=== PATIENT | female | born 1950 | race African-American/Black ===

== ENCOUNTER 2018-09-18 21:17 | Emergency (ER) | payer OTHER, MEDICARE ==
[~2018-09-18] VITALS: Ht 160 cm; Wt 85.7 kg
[~2018-09-18 21:17] MED LIST: ADVAIR HFA115 MCG/21; ASPIR 8181 MG PO; CARVEDILOL12.5 MG PO; CELEXA20 MG PO; CIPROFLOXACIN500 M1 PO; COZAAR 50 MG TA50 M2 PO; FLAGYL500 MG PO; FLEXERIL PO; HYDROCHLOROTHIA25 M2 PO; NAPROSYN500 MG PO; NORTRIPTYLINE H25 M3 PO; OMEPRAZOLE 20 M20 M1 PO; ONDANSETRON HCL4 M2 PO; PERCOCET PO; PREDNISONE50 MG PO; SPIRONOLACTONE25 M1 PO; VENTOLIN HFA 1818 GM; VENTOLIN HFA 1818 GM INH; ZANTAC 150MG T150 MG PO; ZPAK PO; ZYRTEC10 M5 PO
[2018-09-18] MEDS ORDERED: EXCEDRIN EXTRA STR PO (21:42)
[2018-09-18] MEDS ORDERED: DIPHENHIST25 M2 PO (21:43)
[2018-09-18] MEDS ORDERED: TRAMADOL 50 MG50 MG PO (21:44)
[2018-09-18] MEDS ORDERED: VIACTIV 650 MG1 EACH PO (21:44)
[2018-09-18] MEDS ORDERED: ANTIVERT25 MG PO (21:45)
[2018-09-19 01:07] VITALS: BP 150/82
== END 2018-09-19 01:08 | disposition home or self-care (01) ==
LOC: ER 21:17
DX: G43.009 Migraine without aura, not intractable, without status migrainosus (principal); I10 Essential (primary) hypertension; Z88.5 Allergy status to narcotic agent; Z88.8 Allergy status to other drugs, medicaments and biological substances; Z79.899 Other long term (current) drug therapy

== ENCOUNTER 2019-11-09 14:45 | Emergency (ER) | payer OTHER, MEDICARE ==
[~2019-11-09] VITALS: Ht 160 cm; Wt 81.7 kg
[~2019-11-09 14:45] MED LIST changes: +ANTIVERT25 MG PO; +DIPHENHIST25 M2 PO; +EXCEDRIN EXTRA STR PO; +TRAMADOL 50 MG50 MG PO; +VIACTIV 650 MG1 EACH PO
[2019-11-09 15:28] LABS: ABSOLUTE NEUTROPHILS 3.8 thou/uL (1.4-8.2); BASOPHILS 0.9 % (0.0-2.0); EOSINOPHILS 2.7 % (0.0-3.0); HEMATOCRIT 35.5 % (37.0-47.0); HEMOGLOBIN 11.4 gm/dL (12.0-15.0); MCH 23.2 pg (26.0-34.0); MCHC 32.1 g/dL (28.0-37.0); MCV 72.4 fL (80.0-100.0); MONOCYTES 9.9 % (1.0-8.0); PLATELET COUNT 357 thou/uL (150-400); POLYS 50.5 % (36.0-66.0); RDW 15.9 % (10.5-14.5); WBC 7.5 thou/uL (4.0-11.0)
[2019-11-09 15:47] LABS: ANION GAP 5 mmol/L (7-16); BUN 23 mg/dL (7-18); CALCIUM 8.5 mg/dL (8.5-10.1); CHLORIDE 100 mmol/L (98-107); CO2 26 mmol/L (21-32); CREATININE 1.1 mg/dL (0.6-1.0); GLUCOSE 64 mg/dL (74-106); SODIUM 131 mmol/L (136-145)
[2019-11-09 15:56] LABS: POTASSIUM 5.8 mmol/L (3.5-5.1)
[2019-11-09 15:57] LABS: ALBUMIN 3.8 g/dL (3.4-5.0); SGOT 47 U/L (15-37); SGPT 24 U/L (30-65); TOTAL BILIRUBIN 0.5 mg/dL (<0.1-1.0); TOTAL PROTEIN 8.1 g/dL (6.4-8.2); TROPONIN-I <0.06 ng/mL (<0.06)
[2019-11-09] MEDS ORDERED: VENTOLIN HFA 1818 GM INH (17:18)
[2019-11-09 17:35] VITALS: BP 121/53
--- NOTE | 2019-11-10 08:07 | EKG ---
[facility] [place] [address] ELECTROCARDIOGRAM REPORT Name: TANNER JIMENEZ Room #: DEP [facility]#: [id number] Admission: 11/09/19 Attend Phys: Discharge: 11/09/19 Date of : 46 Report #: [id number] THIS REPORT FOR: cc: Nila Richardson MD, Cynthia MD Lundgren,Wander Waggoner MD [facility] ~ THIS REPORT FOR: //name// [facility] ED Test Date: 2019-11-09 Test Time: 15:04:48 Pat Name: TANNER JIMENEZ Department: Room: Gender: F 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 : 1950 Requested By: Alexandrea Lama Order Number: [id number] MD: Wander Cortez Measurements Intervals [place] Rate: 86 P: 42 VA: 179 QRS: 8 QRSD: 113 T: -7 QT: 403 QTc: 482 Interpretive Statements Sinus rhythm Poor R wave progression Baseline wander in lead(s) II,III,aVR,aVL,aVF,V5 Compared to ECG 05/09/1999 12:24:28 Poor R wave progression is now present Electronically Signed On 11-10-2019 8:05:09 CDT by Wander Cortez [email or web address] <ELECTRONICALLY SIGNED> By: Wander Cortez MD, [facility] 11/10/19 0805 1504 1504 Wander Cortez MD, [facility] /EPI
== END 2019-11-09 17:35 | disposition home or self-care (01) ==
LOC: ER 14:45
PROVIDERS: Physician Assistant
DX: J98.01 Acute bronchospasm (principal); I10 Essential (primary) hypertension; Z77.120 Contact with and (suspected) exposure to mold (toxic); Z79.899 Other long term (current) drug therapy; Z88.8 Allergy status to other drugs, medicaments and biological substances; Z88.6 Allergy status to analgesic agent; Z90.710 Acquired absence of both cervix and uterus

== ENCOUNTER 2021-03-06 10:35 | Inpatient (IN) | payer OTHER, MEDICARE ==
[~2021-03-06] VITALS: Ht 160 cm; Wt 83.2 kg
[2021-03-06 10:42] VITALS: BP 122/68
[2021-03-06] MEDS ORDERED: SPIRIVA RESPIMAT4 G1 INH (10:56)
[2021-03-06] MEDS ORDERED: LOSARTAN POTAS100 MG PO (10:56)
[2021-03-06] MEDS ORDERED: SINGULAIR 10 MG10 M1 PO (10:57)
[2021-03-06] MEDS ORDERED: FLUTICASONE-SA1 EAC1 INH (10:57)
[2021-03-06 12:31] LABS: ABSOLUTE NEUTROPHILS 3.6 thou/uL (1.4-8.2); BASOPHILS 0.9 % (0.0-2.0); EOSINOPHILS 0.6 % (0.0-3.0); HEMATOCRIT 32.7 % (37.0-47.0); HEMOGLOBIN 10.3 gm/dL (12.0-15.0); LYMPHOCYTES 27.4 % (24.0-44.0); MCH 22.9 pg (26.0-34.0); MCHC 31.4 g/dL (28.0-37.0); MCV 72.8 fL (80.0-100.0); MONOCYTES 8.6 % (1.0-8.0); PLATELET COUNT 327 thou/uL (150-400); POLYS 62.5 % (36.0-66.0); RBC 4.49 mil/uL (4.20-5.00); RDW 14.6 % (10.5-14.5); WBC 5.7 thou/uL (4.0-11.0)
[2021-03-06 12:48] LABS: APTT 27.5 Seconds (24.5-32.8); PROTIME 10.9 Seconds (10.5-12.1)
[2021-03-06 12:50] LABS: CALCIUM 9.5 mg/dL (8.5-10.1); CREATININE 1.6 mg/dL (0.6-1.0); POTASSIUM 5.3 mmol/L (3.5-5.1)
--- NOTE | 2021-03-06 13:02 | EKG ---
[address] [address] ELECTROCARDIOGRAM REPORT Name: TANNER JIMENEZ Room #: REG [facility]#: [id number] Admission: 03/06/21 Attend Phys: Discharge: Date of : 46 Report #: [id number] [facility] ED Test Date: 2021-03-06 Test Time: 11:25:01 Pat Name: TANNER JIMENEZ Department: Room: Gender: F Bandage Maker: JAMISON : 1950 Requested By: Montana Pressley Order Number: [id number] MD: Pawel Estes Measurements Intervals [place] Rate: 75 P: 41 CO: 175 QRS: 0 QRSD: 111 T: -9 QT: 417 QTc: 466 Interpretive Statements Sinus rhythm Anterior infarct, old Borderline T abnormalities, inferior leads Baseline wander in lead(s) I,II,aVR,aVF Compared to ECG 11/09/2019 15:04:48 Myocardial infarct finding now present T-wave abnormality now present Poor R-wave progression no longer present Electronically Signed On 03-06-2021 13:02:06 CDT by Pawel Estes [email or web address] <ELECTRONICALLY SIGNED> By: Pawel Estes MD, FAC 03/06/21 1302 1125 1125 Pawel Estes MD, [facility] /EPI
[2021-03-06 13:03] LABS: ALBUMIN 3.7 g/dL (3.4-5.0); TOTAL BILIRUBIN 0.4 mg/dL (0.2-1.0); TOTAL PROTEIN 7.1 g/dL (6.4-8.2)
[2021-03-06 13:39] LABS: ANISOCYTOSIS 1+; PLATELET ESTIMATE NORMAL
--- NOTE | 2021-03-06 19:02 | NUR ---
REPORT GIVEN TO MARIMAR ALEJANDRO AT THIS TIME
--- NOTE | 2021-03-07 08:11 | EKG ---
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
[2021-03-07 09:33] VITALS: BP 116/60
--- NOTE | 2021-03-07 10:52 | HC ---
[facility] [place] [address] CONSULTATION Name: TANNER JIMENEZ Room #: 170-11 ADM IN M.R.#: [id number] Admission: 03/06/21 Attend Phys: Isaac Daley MD Discharge: Date of : 46 Report #: [id number] THIS REPORT FOR: cc: Sydney Pastor MD, Genelle J. MD Khosla, Parveen K. MD ~ DATE OF SERVICE: 03/06/2021 HISTORY OF PRESENT ILLNESS: This is a 71-year-old female patient on whom I got a call earlier today from emergency room physician, Dr. Pressley. He has indicated that the patient had complained of dizziness, nausea, vomiting, headache of 3 days duration. This morning, her symptoms progressed and she could not stand up. It looks like she was ataxic that time. That is the history I was provided on the phone. So I had talked to them and I have suggested that we do a CT angiogram of the head and neck, If BUN, creatinine and GFR is normal and as my routine is to go ahead and give her 500 mL of fluid that time. Looking at the record, it looks like the patient's GFR was only 38 and she still had the CT angiogram of the head and neck. I talked to the nurses and they said she did not get the fluid because there was no IV line available. Then, I got called saying that CT angiogram showed a question of dissection and they are recommending MRI of the brain with and without contrast. I looked at the films and noticed that GFR was only 38 and the patient had no IV, so I asked them to do the MRI without contrast only. I looked at that ____ and that MRA does not show any dissection and MRI is unremarkable. When I take the history from the patient, she confirmed the history what she gave to Emergency Room physician, but also gave a history that she has a history of migraine. She says that sometimes the symptoms are similar and sometime they are different. She says her last migraine headache was 3 months ago. This is more severe episode than she usually gets. I carried out rest of the review of systems also. She gives a history that she is on multiple medications. She says she is on citalopram for anxiety. She says she has hypertension and takes the medication and she did not know the name. She had a rotator cuff problem in the past. She had a hysterectomy in the past. This was a relevant 14-point review of system. PAST MEDICAL HISTORY: According to her is positive for migraine, but this is the most severe episode she has, according to her. FAMILY HISTORY: Unremarkable. SOCIAL HISTORY: She says she drinks 1 alcoholic drink every 2-3 days. PHYSICAL EXAMINATION: NEUROLOGIC: She is alert. She is responsive. She is able to follow simple and complex commands. Her speech looks intact. Her memory looks intact. [address] [address] CONSULTATION Name: TANNER JIMENEZ Room #: 170-11 [facility] IN .R.#: [id number] Admission: 03/06/21 Attend Phys: Isaac Daley MD Discharge: Date of : 46 Report #: [id number] nerve examination II-XII looks mostly unremarkable. There is no meningeal sign. She moves all 4 extremities. Her strength looks mostly symmetrical. Her position sense is intact. Reflexes are somewhat diminished. I could not look at the patient's fundus. She does not appear to have any cerebellar sign. CARDIAC: Unremarkable. LUNGS: No respiratory difficulty was noticed. VITAL SIGNS: Blood pressure is 101/64, respirations 18, pulse is 67. LABORATORY DATA: Her white count is 5.7. PT is 10.9. IMPRESSION AND PLAN: This patient complains of symptoms of headache, dizziness, nausea, vomiting for 3 days and this morning, she was not able to stand straight and there was a concern of basilar artery abnormality. That is why I had recommended a CT angiogram of the head and neck if the patient's BUN and creatinine and GFR is normal and if it is not, then recommended MRI and MRA. It looks like CT angiogram of the head and neck was done and the patient's GFR was only 38. Because of that, she needs to fluid, but she does not have any IV line. Therefore, I called Dr. Daley, who is the admitting physician and I discussed the situation with him and he said he is going to arrange some IV lines somehow and give the patient fluids and keep her overnight and hydrate and check the BUN and creatinine again tomorrow. She did not get an IV contrast for the MRI because I had changed that MRI to a noncontrast MRI. In the meantime, I asked the patient to drink a lot of fluid and asked the nurses to give a pitcher of water to her. As far as neurological problem is concerned, I do not identify any neurological etiology on the imaging study on this patient. The studies appeared to be unremarkable. She may have migraine, she may have some ENT pathology or she may have anxiety. Furthermore, it looks the history I got from the patient, was that she has a history of migraine in the past and I think combination of these things are causing her symptoms. She has multiple other symptoms, which are nonspecific, but I do not think she has any stroke or any carotid artery dissection or vertebral artery dissection, which needs attention. Since she is staying here I will get the physical therapy evaluation because she mentioned that she was not able to stand this morning. Part of it may be because of hypotension because her blood pressure was only 96/61 at one time and she may be becoming hypotensive at home. All of it was discussed with the patient in detail and I also talked to other physicians as summarized above. Thank you very much for allowing me to share in the management of this patient. If you have any question, please feel free to contact me. <ELECTRONICALLY SIGNED> By: Francisco Bassett MD 03/07/21 1052 1817 0114 Francisco Bassett MD /nt
[2021-03-07 12:10] LABS: ABSOLUTE NEUTROPHILS 3.2 thou/uL (1.4-8.2); BASOPHILS 0.5 % (0.0-2.0); EOSINOPHILS 1.7 % (0.0-3.0); HEMOGLOBIN 9.8 gm/dL (12.0-15.0); MCH 23.2 pg (26.0-34.0); MCHC 31.7 g/dL (28.0-37.0); MCV 73.4 fL (80.0-100.0); MONOCYTES 8.1 % (1.0-8.0); PLATELET COUNT 261 thou/uL (150-400); POLYS 57.7 % (36.0-66.0); RBC 4.23 mil/uL (4.20-5.00); RDW 14.6 % (10.5-14.5); WBC 5.5 thou/uL (4.0-11.0)
[2021-03-07 12:20] LABS: ANION GAP 10 mmol/L (7-16); BUN 18 mg/dL (7-18); CALCIUM 8.7 mg/dL (8.5-10.1); CHLORIDE 91 mmol/L (98-107); CO2 23 mmol/L (21-32); CREATININE 1.5 mg/dL (0.6-1.0); GLUCOSE 109 mg/dL (74-106); POTASSIUM 4.6 mmol/L (3.5-5.1)
[2021-03-07 12:22] LABS: SODIUM 124 mmol/L (136-145)
[2021-03-07 12:26] LABS: CHOLESTEROL 143 mg/dL (<200); HDL CHOLESTEROL 55 mg/dL (>40); LDL CHOLESTEROL 78 mg/dL (<100); TC:HDL 2.6 Ratio (Not establshd); TRIGLYCERIDE 51 mg/dL (<150); VLDL 10 mg/dL (<40)
--- NOTE | 2021-03-07 12:35 | 2DMMODE ---
[facility] [address] [place] [address] 2 D/M-MODE ECHOCARDIOGRAM Name: TANNER JIMENEZ Room #: 170-11 ADM IN M.R.#: [id number] Admission: 03/06/21 Attend Phys: Isaac Daley MD Discharge: Date of : 46 Report #: [id number] THIS REPORT FOR: cc: Sydney Pastor MD, Genelle J. MD Santiago, Patrick MD [facility] ~ APPROVED REPORT Study performed: 03/07/2021 11:02:45 EXAM: Comprehensive 2D, Doppler, and color-flow Echocardiogram Patient Location: ER Room #: 11 Status: routine BSA: 1.84 HR: 75 bpm BP: 116/60 mmHg Rhythm: NSR Other Information Study Quality: Good Indications Migraine, Dizziness Echo Enhancing Agent Indication: Rule out Shunt Agent(s) / Amount(s) Used: Agitated Saline 7 cc 2D Dimensions IVC: 18.00 mm Volumes Left Atrial Volume (Systole) LA ESV Index: 16.00 mL/m2 Tricuspid Valve PA Pressure: 29.00 mmHg Left Ventricle The left ventricle is normal size. There is normal LV segmental wall motion. There is normal left ventricular wall thickness. Left ventricular systolic function is normal. The left ventricular ejection fraction is within the normal range. LVEF is 60-65%. Grade I [facility] [address] [place] [address] 2 D/M-MODE ECHOCARDIOGRAM Name: TANNER JIMENEZ Room #: 170-11 ADM IN M.R.#: [id number] Admission: 03/06/21 Attend Phys: Isaac Daley MD Discharge: Date of : 46 Report #: [id number] - abnormal relaxation pattern. Right Ventricle The right ventricle is normal size. The right ventricular systolic function is normal. Atria The left atrium size is normal. Interatrial septum is intact without evidence of ASD or PFO. The right atrium size is normal. Aortic Valve The aortic valve is normal in structure. No aortic regurgitation is present. There is no aortic valvular stenosis. Mitral Valve The mitral valve is normal in structure. Trace to mild mitral regurgitation. No evidence of mitral valve stenosis. Tricuspid Valve The tricuspid valve is normal in structure. There is trace tricuspid regurgitation. Estimated PAP 29 mmHg. There is no pulmonary hypertension. Pulmonic Valve The pulmonary valve is normal in structure. There is no pulmonic valvular regurgitation. Great Vessels The aortic root is normal in size. IVC is normal in size and collapses >50% with inspiration. Pericardium There is no pericardial effusion. <Conclusion> Normal left ventricle size/wall thickness Ejection fraction 60% Grade 1 diastolic dysfunction Normal right ventricular size/function Normal atrial size Color-flow Doppler study was performed of the aortic/mitral/tricuspid/pulmonary valve Normal aortic valve structure and function Trace mitral valve insufficiency Trace tricuspid valve insufficiency Pulmonary systolic pressure estimated 29 mmHg [facility] [address] [place] [address] 2 D/M-MODE ECHOCARDIOGRAM Name: TANNER JIMENEZ Room #: 170-11 ADM IN M.R.#: [id number] Admission: 03/06/21 Attend Phys: Isaac Daley MD Discharge: Date of : 46 Report #: [id number] No pericardial effusion Normal aortic root size. <ELECTRONICALLY SIGNED> By: Pawel Estes MD, FACC 03/07/21 1235 1235 123 Pawel Estes MD, FACC /INF
[2021-03-07 12:41] LABS: ANISOCYTOSIS 1+; PLATELET ESTIMATE NORMAL
[2021-03-07 18:32] VITALS: BP 114/60
--- NOTE | 2021-03-07 20:20 | NUR ---
Faxed report to [facility]
[2021-03-07 20:38] VITALS: BP 115/41
[2021-03-07 22:00] VITALS: BP 112/61
[2021-03-08] VITALS: BP 126/65
--- NOTE | 2021-03-08 02:51 | NUR ---
PT ADMITTED TO THE UNIT WITH C/O DIZZINESS,HEADACHE,LOSS OF BALANCE AND NAUSEA AND VOMITING.PT IS A/O X4.PT IS UP TO THE BATHROOM AND BSC WITH X1 ASSIST.PT EDUCATED TO CALL WHEN GETTING UP AND WHEN NEEDED.PT DENIED ANY PAIN.PT IS FROM HOME AND LIVES ALONE.IV ACCESS TO RT BREAST WITH NS AT 75CC/HR.PT IS ON ROOM AIR.ADMISSION EDUCATION AND ASSESSMENT COMPLETED.WILL CONTINUE TO MONITOR PER POC
[2021-03-08 05:01] VITALS: BP 111/63
[2021-03-08 05:20] LABS: HEMATOCRIT 30.7 % (37.0-47.0); HEMOGLOBIN 9.9 gm/dL (12.0-15.0); MCH 23.7 pg (26.0-34.0); MCHC 32.1 g/dL (28.0-37.0); MCV 73.9 fL (80.0-100.0); RBC 4.15 mil/uL (4.20-5.00); RDW 14.8 % (10.5-14.5); WBC 5.8 thou/uL (4.0-11.0)
[2021-03-08 05:41] LABS: CALCIUM 8.2 mg/dL (8.5-10.1); CREATININE 1.5 mg/dL (0.6-1.0); POTASSIUM 4.8 mmol/L (3.5-5.1)
[2021-03-08 08:34] VITALS: BP 118/51
[2021-03-08 13:25] VITALS: BP 103/54
[2021-03-08 15:06] VITALS: BP 103/54
--- NOTE | 2021-03-08 16:37 | NUR ---
Assumed pt care at 7am.Pt in and out of bed for activities. Assessment completed.vss.Sr per dry goods inspector.Pt c/o headache Fiorecet given with partial relief.Dr Daley here,dc order noted. Dc summary compile and reviewed with pt.Homer suarez dc'd.At 1640,pt home per wc with family and accompanied by game advisor.
== END 2021-03-08 17:10 | disposition home or self-care (01) | DRG 103 ==
LOC: ER 10:35 → 4W 16:45 → EROBS 16:45 → 4W 03-07 20:51
PROVIDERS: Emergency Medicine; Psychiatry & Neurology Neuromuscular Medicine; ADMIT Hospitalist; ATTEND Hospitalist
DX: G43.909 Migraine, unspecified, not intractable, without status migrainosus (principal); N17.9 Acute kidney failure, unspecified; E87.1 Hypo-osmolality and hyponatremia; I10 Essential (primary) hypertension; I65.02 Occlusion and stenosis of left vertebral artery; Z20.822 Contact with and (suspected) exposure to COVID-19; Z90.710 Acquired absence of both cervix and uterus; Z88.6 Allergy status to analgesic agent; Z88.8 Allergy status to other drugs, medicaments and biological substances; Z79.899 Other long term (current) drug therapy
CPT/HCPCS: 10045

== ENCOUNTER → 2021-03-11 | Outpatient (CLI) | payer OTHER, MEDICARE ==
[~2021-03-11] MED LIST changes: +FLUTICASONE-SA1 EAC1 INH; +LOSARTAN POTAS100 MG PO; +SINGULAIR 10 MG10 M1 PO; +SPIRIVA RESPIMAT4 G1 INH
== END ==
LOC: SJCVC 13:40
PROVIDERS: ATTEND Internal Medicine
DX: R94.31 Abnormal electrocardiogram [ECG] [EKG] (principal); J43.9 Emphysema, unspecified; K21.9 Gastro-esophageal reflux disease without esophagitis; I10 Essential (primary) hypertension; E78.00 Pure hypercholesterolemia, unspecified; Z13.220 Encounter for screening for lipoid disorders; F51.04 Psychophysiologic insomnia; Z82.49 Family history of ischemic heart disease and other diseases of the circulatory system; Z72.89 Other problems related to lifestyle; Z88.8 Allergy status to other drugs, medicaments and biological substances; Z79.899 Other long term (current) drug therapy; Z87.891 Personal history of nicotine dependence

== ENCOUNTER → 2021-03-29 | Outpatient (CLI) | payer OTHER, MEDICARE ==
[~2021-03-29] MED LIST changes: +BENADRYL ALLERG25 MG PO; -EXCEDRIN EXTRA STR PO; +PROAIR HFA8.5 GM INH; +[UNRECOGNIZED DRUG - OTHER] PO
== END ==
LOC: LAB 15:39
PROVIDERS: ATTEND Student in an Organized Health Care Education/Training Program
DX: Z01.812 Encounter for preprocedural laboratory examination (principal); Z20.822 Contact with and (suspected) exposure to COVID-19

== ENCOUNTER → 2021-04-02 | Outpatient (CLI) | payer OTHER, MEDICARE ==
[~2021-04-02] VITALS: Ht 160 cm; Wt 82.1 kg
--- NOTE | 2021-04-05 10:27 | PATH ---
[facility] [address] [address] PATHOLOGY RPT PROCEDURE Name: KIMI DAVIS Room #: REG NAT[facility].#: [id number] Admission: 04/02/21 Date of : 46 Discharge: Report #: [id number] Path Case #: [id number] [facility] Accession Number: [id number] . 01 Material submitted: . PART A: gastrointestinal site - GASTRIC BX PART B: duodenum - DUODENAL BX PART C: colon - RANDOM COLON BX PART D: colon - ASCENDING COLON POLYP. Modifiers: ascending PART E: colon - DESCENDING COLON POLYP. Modifiers: descending . 01 Clinical history: . R/O H. PYLORI R/O CELIAC MICROSCOPIC COLITIS DIARRHEA, DYSPEPSIA, ABDOMINAL PAIN, NAUSEA AND VOMITTING HIATAL HERNIA, COLON POLYPS, DIVERTICULOSIS . 02 Diagnosis: A. Gastric mucosa, gastric, biopsy: - Mild inactive chronic gastritis. - H. pylori immunohistochemical stain is negative. . B. Duodenal mucosa, duodenal, biopsy: - Intact normal villous architecture. - No increase in intraepithelial lymphocytes. . C. Colonic mucosa, random colon, biopsy: - Edematous colonic mucosa with no significant pathologic changes. - Negative for microscopic colitis. . D. Colonic mucosa, ascending colon polyp, biopsy: - Hyperplastic changes. - Negative for dysplasia. . E. Colonic mucosa, descending colon polyp, biopsy: - Tubular adenoma. . (SCA:luciano; 04/04/2021) MBR 04/04/2021 1248 Local . 02 Electronically signed: . Andres Sood DO, Pathologist NPI- [id number] . 01 Gross description: . A. The specimen is received in formalin, labeled "Kimi Davis, gastric [address] [address] PATHOLOGY RPT PROCEDURE Name: KIMI DAVIS Room #: REG [facility].#: [id number] Admission: 04/02/21 Date of : 46 Discharge: Report #: [id number] Path Case #: [id number] biopsy". Received are four segments of pale darnell tissue ranging in size from 0.2-0.5 cm in maximum dimensions. The specimen is submitted entirely in cassette A1. . B. The specimen is received in formalin, labeled "Kimi Davis, duodenal biopsy". Received are two segments of pale darnell tissue measuring 0.3 and 0.4 cm in maximum dimensions. The specimen is submitted entirely in cassette B1. . C. The specimen is received in formalin, labeled "Kimi Davis, random colon biopsy". Received are four segments of pale darnell tissue ranging in size from 0.3-0.4 cm in maximum dimensions. The specimen is submitted entirely in cassette C1. . D. The specimen is received in formalin, labeled "Kimi Davis, ascending colon polyp". Received are two segments of pale darnell tissue measuring 0.2 cm each in maximum dimensions. The specimen is submitted entirely in cassette D1. . E. The specimen is received in formalin, labeled "Kimi Davis, descending colon polyp". Received is a segment of light darnell tissue measuring 0.5 cm in maximum dimensions. The specimen is submitted entirely in cassette E1. ([facility]; 04/03/2021) QAC/QAC 04/03/2021 0957 Local . 02 Pathologist provided ICD-10: K29.50, D12.4, R19.7, R10.13, R10.9, R11.2 . 02 CPT . 733760, 088980, 489339, 120214, 024115, [id number] Specimen Comment: A courtesy copy of this report has been sent to [phone] Specimen Comment: [id number] Specimen Comment: Report sent to / DR OCY Specimen Comment: A duplicate report has been generated due to demographic updates. Performed at: 01 [facility] [address] [id number] MD Roman Rodriguez MD Phone: [phone] Performed at: [address] [place] [id number] [address] [id number] MD Jer Dacosta MD Phone: [phone]
== END | disposition home or self-care (01) ==
LOC: GI 06:45
PROVIDERS: ATTEND Internal Medicine
DX: Z12.11 Encounter for screening for malignant neoplasm of colon (principal); D12.4 Benign neoplasm of descending colon; K57.30 Diverticulosis of large intestine without perforation or abscess without bleeding; D50.0 Iron deficiency anemia secondary to blood loss (chronic); K52.9 Noninfective gastroenteritis and colitis, unspecified; K29.50 Unspecified chronic gastritis without bleeding; K64.8 Other hemorrhoids; K44.9 Diaphragmatic hernia without obstruction or gangrene; R10.13 Epigastric pain; K21.9 Gastro-esophageal reflux disease without esophagitis; I10 Essential (primary) hypertension; G43.909 Migraine, unspecified, not intractable, without status migrainosus; Z98.890 Other specified postprocedural states; Z79.899 Other long term (current) drug therapy; Z87.891 Personal history of nicotine dependence; Z90.710 Acquired absence of both cervix and uterus
CPT/HCPCS: 62110; 62900

== ENCOUNTER → 2021-04-17 | Outpatient (CLI) | payer OTHER, MEDICARE | END | disposition home or self-care (01) | LOC: SJCVC 13:59 | PROVIDERS: ATTEND Internal Medicine | DX: I48.0 Paroxysmal atrial fibrillation (principal); J43.9 Emphysema, unspecified; I10 Essential (primary) hypertension; K21.9 Gastro-esophageal reflux disease without esophagitis; F51.04 Psychophysiologic insomnia; Z88.5 Allergy status to narcotic agent; Z91.011 Allergy to milk products; Z88.8 Allergy status to other drugs, medicaments and biological substances; Z79.899 Other long term (current) drug therapy; Z72.89 Other problems related to lifestyle ==

== ENCOUNTER 2021-05-14 16:04 | Inpatient (IN) | payer OTHER, MEDICARE ==
[~2021-05-14] VITALS: Ht 160 cm; Wt 83.0 kg
[2021-05-14 16:04] VITALS: BP 104/57
[2021-05-14] MEDS ORDERED: DILTIAZEM 24HR120 M1 PO (16:14)
[2021-05-14] MEDS ORDERED: ELIQUIS5 MG PO (16:15)
[2021-05-14 16:22] LABS: EOSINOPHILS 2.9 % (0.0-3.0); HEMOGLOBIN 10.4 gm/dL (12.0-15.0); LYMPHOCYTES 41.6 % (24.0-44.0); MCH 23.2 pg (26.0-34.0); MCHC 31.6 g/dL (28.0-37.0); MCV 73.4 fL (80.0-100.0); PLATELET COUNT 309 thou/uL (150-400); POLYS 46.5 % (36.0-66.0); RBC 4.49 mil/uL (4.20-5.00); RDW 14.2 % (10.5-14.5); WBC 6.4 thou/uL (4.0-11.0)
[2021-05-14 16:36] LABS: CALCIUM 8.6 mg/dL (8.5-10.1); CREATININE 1.7 mg/dL (0.6-1.0); MAGNESIUM 1.7 mg/dL (1.8-2.4); POTASSIUM 5.2 mmol/L (3.5-5.1)
[2021-05-14 17:11] LABS: URINE BILIRUBIN NEGATIVE (Negative); URINE BLOOD NEGATIVE (Negative); URINE CLARITY CLEAR; URINE COLOR YELLOW; URINE GLUCOSE-RANDOM* NEGATIVE (Negative); URINE KETONES NEGATIVE (Negative); URINE NITRITE-REFLEX NEGATIVE (Negative); URINE PROTEIN (DIPSTICK) NEGATIVE (Negative); URINE SPECIFIC GRAVITY 1.015 (1.005-1.035); URINE UROBILINOGEN 0.2 E.U./dl (0.2-1.0)
[2021-05-14 17:13] LABS: URINE LEUKOCYTES-REFLEX 1+ (Negative)
[2021-05-14 17:31] LABS: BACTERIA-REFLEX 1-9 Few /HPF (None Seen); CASTS None Seen /LPF (None Seen); CRYSTALS None Seen /LPF (None Seen); SQUAMOUS 4-10 Moderate /LPF (0-3); URINE RBC 1-2 Rare /HPF (NONE SEEN); URINE WBC-REFLEX 0-5 Rare /HPF (0-5)
[2021-05-14 20:29] VITALS: BP 135/44
[2021-05-14 20:51] VITALS: BP 135/44
[2021-05-14 21:13] VITALS: BP 120/66
--- NOTE | 2021-05-14 22:38 | NUR ---
PT ARRIVED TO THE UNIT AT AROUND 2100 HRS. PT IS ALERT AND ORIENTED.UP STEADILY IN THE ROOM.VOIDING OKAY IN THE BATHROOM. ADMISSION COMPLETED. SR ON TELEMETRY. ON ROOM AIR WITH NO S/SX OF DISTRESS. AFEBRILE.DENIES ANY NAUSEA OR VOMITING. IVF INFUSING VIA LEFT WRIST.NO FURTHER CONCERNS AT THIS TIME.
[2021-05-15 04:50] VITALS: BP 96/48
[2021-05-15 06:22] LABS: ABSOLUTE NEUTROPHILS 2.7 thou/uL (1.4-8.2); EOSINOPHILS 3.4 % (0.0-3.0); HEMATOCRIT 31.8 % (37.0-47.0); HEMOGLOBIN 10.1 gm/dL (12.0-15.0); LYMPHOCYTES 36.5 % (24.0-44.0); MCH 23.5 pg (26.0-34.0); MCHC 31.7 g/dL (28.0-37.0); MCV 74.1 fL (80.0-100.0); PLATELET COUNT 311 thou/uL (150-400); POLYS 48.1 % (36.0-66.0); RDW 14.4 % (10.5-14.5); WBC 5.7 thou/uL (4.0-11.0)
--- NOTE | 2021-05-15 07:10 | EKG ---
[address] [place] [address] ELECTROCARDIOGRAM REPORT Name: TANNER JIMENEZ Room #: 447-P ADM IN .R.#: [id number] Admission: 05/14/21 Attend Phys: Delvis Painting MD Discharge: Date of : 46 Report #: [id number] [facility] ED Test Date: 2021-05-14 Test Time: 16:12:10 Pat Name: TANNER JIMENEZ Department: Room: [facility] Gender: F Senior Accountant: YAMILKA : 1950 Requested By: Dwight Mccain Order Number: [id number] MD: Pawel Estes Measurements Intervals [place] Rate: 76 P: 67 GA: 209 QRS: 23 QRSD: 109 T: -50 QT: 390 QTc: 439 Interpretive Statements Sinus rhythm Borderline T abnormalities, inferior leads Compared to ECG 03/06/2021 14:32:10 T-wave abnormality now present Poor R-wave progression no longer present Electronically Signed On 05-15-2021 7:10:30 DATA DEVELOPER by Pawel Estes [email or web address] <ELECTRONICALLY SIGNED> By: Pawel Estes MD, [facility] 05/15/21 0710 11 11 Pawel Estes MD, [facility] /EPI
[2021-05-15 07:55] LABS: CALCIUM 8.6 mg/dL (8.5-10.1); CREATININE 1.5 mg/dL (0.6-1.0); MAGNESIUM 1.9 mg/dL (1.8-2.4)
[2021-05-15 08:02] LABS: POTASSIUM 6.8 mmol/L (3.5-5.1)
[2021-05-15 08:17] VITALS: BP 119/62
[2021-05-15 09:06] LABS: CALCIUM 8.7 mg/dL (8.5-10.1); CREATININE 1.5 mg/dL (0.6-1.0)
[2021-05-15 09:16] LABS: POTASSIUM 6.6 mmol/L (3.5-5.1)
--- NOTE | 2021-05-15 10:56 | NUR ---
ASSUMED PT CARE THIS AM. PT IS ALERT & ORIENTED X4. PTY HAS IV SITE ON R WRIST. INFORMED DR THAT K WAS 6.8 THIS AM. REPEATED BMP AND INFORMED ABOUT TO DR THAT K WAS 6.6. GIVEN SCHEDULED MEDICATION AND NEW ORDERED MEDICATION PER DR ORDERED. PT CALLED AND NOTICED THAT EKG WAS TACHY AND SHE STATED SHE DOESN'T FEEL GOOD. KRYPTOSTEXT DR AND INFORMED THAT BG WAS 39 AND GIVEN DEXTROSE IV PUSH TO ELEVATE BG. INFORMED DR THAT BG IS NOW 170. AND INFUSED NS @75ML/HR. WILL CONTINUE TO MONITOR PT. DEUCEOW POC.
[2021-05-15 15:27] LABS: CALCIUM 9.5 mg/dL (8.5-10.1); CREATININE 1.5 mg/dL (0.6-1.0)
[2021-05-15 15:31] LABS: POTASSIUM 5.2 mmol/L (3.5-5.1)
[2021-05-15 16:30] VITALS: BP 104/60
--- NOTE | 2021-05-15 17:23 | NUR ---
Chart reviewed and discussed with the care team. Pt up ad char in the room and was indep prior to admission. She lives alone in an apt and uses a cane. Her dtr and grandson are her emergency contacts. Her pcp is Dr. Tej Briones. She is being treated for hyponatremia. No cm interventions indicated at this time. Will follow along should dc needs arise.
[2021-05-15 20:17] VITALS: BP 106/57
--- NOTE | 2021-05-16 00:40 | NUR ---
ASSESSMENT COMPLETED.PT UP AD LEONARD IN ROOM. CONTINUES ON GENTLE HYDRATION.SR ON TELEMETRY.DENIES ANY NAUSEA OR VOMITING, STILL REPORTS SOME GREENISH LOOSE STOOL WHICH I HAVE NOT SEEN-DENIES ANY ASSOCIATED ABDOMINAL CRAMPING. AFEBRILE. ROOM AIR. SOME PAIN TO RIGHT BACK SIDE, TRAMADOL GIVEN. CALL LIGHT WITHIN REACH.
[2021-05-16 07:40] VITALS: BP 110/60
--- NOTE | 2021-05-16 09:46 | NUR ---
ASSUMED PT CARE THIS AM. PT IS ALERT & ORIENTED X4. PT HAS IV SITE ON L WRIST RUNNING NS @75ML/HR. PT IS UP AD LEONARD. PT IS ON TELE MONITOR ON. PT IS ON ROOM AIR. NO C/O OF PAIN, NAUSEA AND VOMITING. PT TOLERATED DIET AND MEDICATION WELL. EDUCATED PT ABOUT MEDS THIS AM. WILL CONTINUE TO MONITOR PT. FOLLOW POC.
[2021-05-16 11:10] LABS: HEMATOCRIT 30.8 % (37.0-47.0); HEMOGLOBIN 9.6 gm/dL (12.0-15.0); MCH 22.9 pg (26.0-34.0); MCHC 31.1 g/dL (28.0-37.0); MCV 73.7 fL (80.0-100.0); RBC 4.18 mil/uL (4.20-5.00); RDW 14.3 % (10.5-14.5); WBC 5.4 thou/uL (4.0-11.0)
[2021-05-16 11:22] LABS: CALCIUM 9.1 mg/dL (8.5-10.1); CREATININE 1.4 mg/dL (0.6-1.0); MAGNESIUM 1.7 mg/dL (1.8-2.4); POTASSIUM 5.1 mmol/L (3.5-5.1)
[2021-05-16 12:10] VITALS: BP 118/68
[2021-05-16 16:28] VITALS: BP 110/63
[2021-05-16 21:00] VITALS: BP 124/63
--- NOTE | 2021-05-17 03:21 | NUR ---
RECEIVED CARE OF THIS PATIENT AT 1900. PATIENT ALERT AND ORIENTED X4. UP TO BATHROOM. DENIES PAIN.IV IN LW PATENT WITH FLUIDS IBFUSING. HR IS ELEVATED WHEN UP TO BATHROOM. ON TELE. SLEPT OFF AND ON DURING NIGNT.
[2021-05-17 05:26] LABS: HEMATOCRIT 31.9 % (37.0-47.0); HEMOGLOBIN 10.1 gm/dL (12.0-15.0); MCH 23.9 pg (26.0-34.0); MCHC 31.7 g/dL (28.0-37.0); MCV 75.4 fL (80.0-100.0); RBC 4.23 mil/uL (4.20-5.00); RDW 14.8 % (10.5-14.5); WBC 5.5 thou/uL (4.0-11.0)
[2021-05-17 05:47] LABS: CREATININE 1.5 mg/dL (0.6-1.0); MAGNESIUM 1.6 mg/dL (1.8-2.4); POTASSIUM 5.2 mmol/L (3.5-5.1)
[2021-05-17 08:22] VITALS: BP 122/70
[2021-05-17 11:16] VITALS: BP 120/66
[2021-05-17 16:40] VITALS: BP 139/77
[2021-05-17 20:49] VITALS: BP 114/59
--- NOTE | 2021-05-18 00:35 | NUR ---
ASSESSED AT START OF SHIFT. PT RESTING IN BED. UP AD LEONARD TO THE BATHROOM. URINE SPECIMEN COLLECTED AND SENT TO LAB. TYELNOL GIVEN FOR HEADACHE. PT DENIES N/V. ON A 1500ML FLUID RESTRICTION WILL CONT TO MONITOR TILL EOS. NO FURTHER SIGNS OF DISCOMFORT.
[2021-05-18 08:49] VITALS: BP 117/67
--- NOTE | 2021-05-18 08:52 | NUR ---
A/O X 4. ROOM AIR. AD LEONARD-STEADY GAIT. LEFT WRIST IV-DRESSING SLIGHT BLOOD NOTED, PATENT WHEN FLUSHED WITH 10 CC NS. SR ON TELE WITH A 7 BEAT RUN OF VTACH THIS MORNING. BILATERAL FLANK PAIN-TRAMADOL GIVEN PRIOR SHIFT. REFUSED MIRALAX.
[2021-05-18 10:04] LABS: CREATININE 1.5 mg/dL (0.6-1.0); MAGNESIUM 1.4 mg/dL (1.8-2.4); POTASSIUM 5.5 mmol/L (3.5-5.1)
[2021-05-18 17:03] VITALS: BP 109/62
[2021-05-18 20:30] VITALS: BP 112/62
[2021-05-19 05:38] LABS: CREATININE 1.4 mg/dL (0.6-1.0); MAGNESIUM 1.4 mg/dL (1.8-2.4)
[2021-05-19 08:15] VITALS: BP 110/67
--- NOTE | 2021-05-19 08:19 | NUR ---
PT AMBULATING TO BATHROOM INDEPENDENTLY AND IS TOLERATING FAIR. TRAMDOL PROVIDING PAIN RELIEF. RESTING COMFORTABLY. NO NEEDS VOICED. CALL LIGHT WITHIN REACH. FREQUENT OBSERVATION.
[2021-05-19] MEDS ORDERED: DEMADEX20 MG PO (12:05)
[2021-05-19 12:11] VITALS: BP 110/67
== END 2021-05-19 13:05 | disposition home or self-care (01) | DRG 640 ==
LOC: ER 16:04 → EROBS 18:10 → 4S 18:10
PROVIDERS: Emergency Medicine; Nurse Practitioner; ADMIT Internal Medicine; ATTEND Internal Medicine
DX: E87.1 Hypo-osmolality and hyponatremia (principal); N17.0 Acute kidney failure with tubular necrosis; N39.0 Urinary tract infection, site not specified; E87.5 Hyperkalemia; N18.9 Chronic kidney disease, unspecified; K21.9 Gastro-esophageal reflux disease without esophagitis; E78.5 Hyperlipidemia, unspecified; J45.909 Unspecified asthma, uncomplicated; R60.0 Localized edema; I48.0 Paroxysmal atrial fibrillation; I12.9 Hypertensive chronic kidney disease with stage 1 through stage 4 chronic kidney disease, or unspecified chronic kidney disease; G43.909 Migraine, unspecified, not intractable, without status migrainosus; Z20.822 Contact with and (suspected) exposure to COVID-19; Z90.710 Acquired absence of both cervix and uterus; Z79.899 Other long term (current) drug therapy; Z79.01 Long term (current) use of anticoagulants; Z88.5 Allergy status to narcotic agent; Z88.8 Allergy status to other drugs, medicaments and biological substances; Z82.49 Family history of ischemic heart disease and other diseases of the circulatory system
CPT/HCPCS: 10100

== ENCOUNTER → 2021-05-29 | Outpatient (CLI) | payer OTHER, MEDICARE ==
[~2021-05-29] MED LIST changes: +DEMADEX20 MG PO; +DILTIAZEM 24HR120 M1 PO; +ELIQUIS5 MG PO
== END ==
LOC: SJCVC 14:10
PROVIDERS: ATTEND Internal Medicine
DX: R94.31 Abnormal electrocardiogram [ECG] [EKG] (principal); I48.0 Paroxysmal atrial fibrillation; J43.9 Emphysema, unspecified; I10 Essential (primary) hypertension; K21.9 Gastro-esophageal reflux disease without esophagitis; F51.04 Psychophysiologic insomnia; R06.00 Dyspnea, unspecified; Z88.5 Allergy status to narcotic agent; Z88.8 Allergy status to other drugs, medicaments and biological substances; Z79.899 Other long term (current) drug therapy; Z72.89 Other problems related to lifestyle; Z87.891 Personal history of nicotine dependence